=== PATIENT | male | born 1985 | race Caucasian/White ===

== ENCOUNTER 2020-10-10 12:09 | Emergency (ER) | payer OTHER ==
[~2020-10-10] VITALS: Ht 167.6 cm; Wt 74.8 kg
[2020-10-10] MEDS ORDERED: DESCOVY 200-251 EACH PO (12:19)
== END 2020-10-10 16:32 | disposition home or self-care (01) ==
LOC: ER 12:09
DX: J35.01 Chronic tonsillitis (principal)

== ENCOUNTER 2022-12-02 22:07 | Emergency (ER) | payer OTHER ==
[~2022-12-02] VITALS: Ht 167.6 cm; Wt 77.1 kg
[~2022-12-02 22:07] MED LIST: DESCOVY 200-251 EACH PO
== END 2022-12-02 23:52 | disposition home or self-care (01) ==
LOC: ER 22:07
DX: J03.90 Acute tonsillitis, unspecified (principal)